=== PATIENT | female | born 2000 | race Two or more races ===

== ENCOUNTER 2021-01-14 01:54 | Emergency (ER) | payer BC ==
[~2021-01-14] VITALS: Ht 170.2 cm; Wt 145.1 kg
[2021-01-14] MEDS ORDERED: MORPHINE SULFATE INJ 2 MG/ML DISP.SYRIN ONE ×3 (02:14→12:44)
[2021-01-14] MEDS ORDERED: IOHEXOL-300 100 ML VIAL IV ONE (02:21)
[2021-01-14] MEDS ORDERED: IV NS 0.9% 250 ML IV ONE (02:21)
[2021-01-14] MEDS ORDERED: MORPHINE SULFATE INJ 2 MG/ML DISP.SYRIN IV ONE ×4 (02:30→13:00)
[2021-01-14] MEDS ORDERED: IV NS 0.9% 1,000 ML BAG IV ONE (02:30)
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
[2021-01-14 02:45] LABS: BASOPHILS # (AUTO) 0.1 K/uL (0.0-0.2); BASOPHILS % (AUTO) 0.4 % (0.0-2.0); EOSINOPHILS % (AUTO) 0.6 % (0.0-6.0); HEMATOCRIT 37 % (33-45); HEMOGLOBIN 11.6 g/dL (11.5-14.8); LYMPHOCYTES # (AUTO) 6.6 K/uL (0.8-4.8); LYMPHOCYTES % (AUTO) 35.8 % (20.0-44.0); MEAN CORPUSCULAR HGB CONC 32 g/dl (31.0-36.0); MEAN CORPUSCULAR VOLUME 76 fL (82-100); MONOCYTES # (AUTO) 0.7 K/uL (0.1-1.30); MONOCYTES % (AUTO) 3.8 % (2.0-12.0); NEUTROPHILS # (AUTO) 10.9 K/uL (1.8-8.9); NEUTROPHILS % (AUTO) 59.4 % (43.0-81.0); PLATELET COUNT (AUTO) 414 K/uL (150-450); WHITE BLOOD COUNT (AUTO) 18.4 K/uL (4.3-11.0)
[2021-01-14 03:01] LABS: ALBUMIN 3.5 g/dL (3.4-5.0); BILIRUBIN,DIRECT 0.1 mg/dL (0.0-0.2); BILIRUBIN,TOTAL 0.2 mg/dL (0.2-1.0); POTASSIUM 3.5 mmol/L (3.5-5.1); TOTAL PROTEIN, SERUM 7.7 g/dL (6.4-8.2)
--- NOTE | 2021-01-14 03:41 | NUR ---
PT REFUSED FOR URINE COLLECTION; EXPLAINED RISKS AND BENEFITS BUT PT STILL REFUSED. MD AWARE. REQUESTED FOR PAIN MEDS; INFORMED.
[2021-01-14] MEDS ORDERED: HYDROMORPHONE 1 MG/1 ML DISP.SYRIN ONE (03:45)
--- NOTE | 2021-01-14 03:50 | NUR ---
COVID SWAB FACILITATED
[2021-01-14] MEDS ORDERED: HYDROMORPHONE 1 MG/1 ML DISP.SYRIN IV ONE (04:00)
--- NOTE | 2021-01-14 04:00 | NUR ---
CALL RECEIVED FROM PT'S MOM (ROSA) PROVIDED GENERAL UPDATES; ALSO INFORMED THAT PT WILL BE TRANSFERRED TO [facility] FOR FURTHER MGT. WILL PROVIDE UPDATE REGARDING CONFIRMATION AND NAME OF HOSPITAL WHERE PT WILL BE TRANSFERRED. PT'S MOM AKCNOWLEDGED.
--- NOTE | 2021-01-14 04:45 | NUR ---
PATIENT ACCEPTED TO [facility] UNDER SURGEON FRANSISCO. CALL ER FOR REPORT
--- NOTE | 2021-01-14 04:50 | NUR ---
[facility] NOT AVAILABLE, NO ETA AT THIS TIME
--- NOTE | 2021-01-14 05:30 | NUR ---
[facility] BLS APPOINTMENT SCHEDULER ETA 1033
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
--- NOTE | 2021-01-14 05:55 | NUR ---
CALLED [facility] [phone]; SPOKE WITH JESSICA; TRANSFER REPORT GIVEN. ALL PERTINENT INFO REGARDING PT GIVEN. RN ACKNOWLEDGED. ADVISED THAT TRANSPORTATION SERVICE IS STILL BEING WORKED ON AND WILL NOTIFY THEM FOR THE TIME OF [employer] BENDER AND ETA.
--- NOTE | 2021-01-14 06:00 | NUR ---
CALLED [facility], NO AVAILABLE TIME SLOTS.
--- NOTE | 2021-01-14 07:37 | NUR ---
[facility] CALLED ETA 1300 PER DENA
--- NOTE | 2021-01-14 08:30 | NUR ---
GAVE UPDATE TO MILAGRO OLMEDO, SPOKE TO NATALIE. WILL GIVE ANOTHER UPDATE ONCE THE PT LEAVES ER
[2021-01-14] MEDS ORDERED: MORPHINE SULFATE INJ 4 MG/ML DISP.SYRIN ONE (09:57)
--- NOTE | 2021-01-14 12:41 | NUR ---
PT THREW UP AND STILL COMPLAINING OF PAIN, AWARE
[2021-01-14] MEDS ORDERED: ONDANSETRON HCL/PF 4 MG/2 ML VIAL ONE (12:43)
[2021-01-14] MEDS ORDERED: ONDANSETRON HCL/PF 4 MG/2 ML VIAL IV ONE (13:00)
[2021-01-14 13:10] VITALS: BP 129/78
--- NOTE | 2021-01-14 13:37 | NUR ---
SPOKE TO MARTÍN OF [facility], INFORMED THAT PT IS ON HER WAY.
== END 2021-01-14 13:43 | disposition short-term general hospital (02) ==
LOC: ER 01:59
DX: S09.90XA Unspecified injury of head, initial encounter (principal); V49.9XXA Car occupant (driver) (passenger) injured in unspecified traffic accident, initial encounter; Y92.414 Local residential or business street as the place of occurrence of the external cause; S42.111A Displaced fracture of body of scapula, right shoulder, initial encounter for closed fracture; S22.079A Unspecified fracture of T9-T10 vertebra, initial encounter for closed fracture; S32.009A Unspecified fracture of unspecified lumbar vertebra, initial encounter for closed fracture; D27.0 Benign neoplasm of right ovary; S22.32XA Fracture of one rib, left side, initial encounter for closed fracture; D72.829 Elevated white blood cell count, unspecified; E66.01 Morbid (severe) obesity due to excess calories; Z68.43 Body mass index [BMI] 50.0-59.9, adult; Z20.822 Contact with and (suspected) exposure to COVID-19
CPT/HCPCS: 36415; 70450; 71260; 72125; 73030; 74177; 80048; 80076; 80307; 80320; 85025; 85730; 87426; 96374; 96375; 96376; 99291; C9803; J1170; J2270 ×4; J2405; J7050; L0172; Q9967; G0480